=== PATIENT | male | born 1990 | race Hispanic/Latino ===

== ENCOUNTER 2017-12-08 14:35 | Emergency (ER) | payer SELFPAY ==
--- NOTE | 2017-12-08 16:38 | ER ---
Nurse's Notes [facility] Name: Mauro Gómez Age: 27 yrs Sex: Male : 1990 Arrival Date: 12/08/2017 Time: 14:41 Bed 9 Private MD: None, None Diagnosis: Pterygium of eye Presentation: 12/08 15:14 Presenting complaint: Patient states: White spot to sclera that started this AM. aj Patient denies vision changes. Transition of care: patient was not received from another setting of care. Mechanism of Injury: No Mechanism of Injury. The patient denies any loss of vision. Onset of symptoms was December 08, 2017. Risk Assessment: Do you want to hurt yourself or someone else? Patient reports no desire to harm self or others. Initial Sepsis Screen: Does the patient meet any 2 criteria? No. Patient's initial sepsis screen is negative. Does the patient have a suspected source of infection? No. Patient's initial sepsis screen is negative. Care prior to arrival: None. 15:14 Method Of Arrival: Ambulatory 15:14 Acuity: BONNIE 2 Triage Assessment: 15:15 General: Appears in no apparent distress. comfortable, Behavior is calm, cooperative, aj appropriate for age. Pain: Denies pain. EENT: White spot with area of inflammation to right sclera at edge of iris. Reports pain in medial aspect of conjunctiva of right eye. Neuro: Level of Consciousness is awake, alert, obeys commands, Oriented to person, place, time, situation, Appropriate for age. Respiratory: Airway is patent Respiratory effort is even, unlabored, Respiratory pattern is regular, symmetrical. Derm: Skin is intact, is healthy with good turgor, Skin is pink, warm \T\ dry. normal. Historical: - Allergies: 15:15 No Known Allergies; aj - Home Meds: 15:15 None [Active]; aj - PMHx: 15:15 None; aj - PSHx: 15:15 Hip; aj - Immunization history:: Last tetanus immunization: unknown. - Social history:: Smoking status: Patient uses tobacco products, smokes one-half pack cigarettes per day, Patient uses alcohol, only on a social basis. - Ebola Screening: : Patient negative for fever greater than or equal to 101.5 degrees Fahrenheit, and additional compatible Ebola Virus Disease symptoms Patient denies exposure to infectious person Patient denies travel to an Ebola-affected area in the 21 days before illness onset No symptoms or risks identified at this time. Screenin:40 Abuse screen: Denies threats or abuse. Denies injuries from another. Nutritional iw screening: No deficits noted. Tuberculosis screening: No symptoms or risk factors identified. Fall Risk None identified. Assessment: 16:15 General: Appears in no apparent distress. comfortable, Behavior is calm, cooperative. iw Pain: Complains of pain in right eye. Neuro: Level of Consciousness is awake, alert, obeys commands, Oriented to person, place, time, situation, Moves all extremities. Full function. Cardiovascular: Capillary refill < 3 seconds in bilateral fingers Patient's skin is warm and dry. Respiratory: Respiratory effort is even, unlabored, Respiratory pattern is regular, symmetrical. EENT: Eyes small area of white discoloration noted to medial aspect of right iris. Sclera/Cornea are clear in outer aspect of conjuctiva of right eye, iris of right eye and inner aspect of conjuctiva of right eye. Derm: Skin is intact, is healthy with good turgor. Musculoskeletal: Range of motion: intact in all extremities. Vital Signs: 15:15 BP 114 / 69; Pulse 87; Resp 17; Temp 98.1; Pulse Ox 99% on R/A; Weight 54.43 kg; Height aj 5 ft. 2 in. (157.48 cm); 15:15 Body Mass Index 21.95 (54.43 kg, 157.48 cm) aj ED Course: 14:41 Patient arrived in ED. mr 14:41 None, None is Private Physician. mr 15:15 Triage completed. aj 15:15 Arm band placed on left wrist. Patient placed in an exam room. aj 15:15 Patient has correct armband on for positive identification. iw 16:04 Kasey Bermudez, FAWN is Primary Nurse. iw 16:09 Dashawn Melendrez PA is PHCP. [facility] 16:09 Rad Bennett MD is Attending Physician. [facility] 16:50 No provider procedures requiring assistance completed. Patient did not have IV access iw during this emergency room visit. Administered Medications: No medications were administered Outcome: 16:37 Discharge ordered by . [facility] 16:50 Discharged to home ambulatory, with family. iw 16:50 Condition: good 16:50 Discharge instructions given to patient, Instructed on discharge instructions, follow up and referral plans. Demonstrated understanding of instructions, follow-up care. 16:51 Patient left the ED. iw Signatures: Jayleen Storey RN RN Dashawn Maldonado PA PA jmm Rivera, Mary mr Kasey Bermudez RN RN iw Corrections: (The following items were deleted from the chart) 15:17 15:15 Immunization history: Adult Immunizations up to date, mikel morin
--- NOTE | 2017-12-08 16:38 | EDPHYS ---
Physician Documentation [facility] Name: Mauro Gómez Age: 27 yrs Sex: Male : 1990 Arrival Date: 12/08/2017 Time: 14:41 Bed 9 Private MD: None, None ED Physician Rad Bennett HPI: 12/08 16:18 This 27 yrs old Male presents to ER via Ambulatory with complaints of Eye Pain.jmm 16:18 The patient is experiencing pain. Onset: The symptoms/episode began/occurred today. jmm Duration: the symptoms are continuous. Aggravated by nothing. Alleviated by nothing. Associated signs and symptoms: Pertinent negatives: fever. This is a 27 year old male that presents to the ED with complaints of a mass to his right eye. 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 Patient denies change in his vision. . Historical: - Allergies: 15:15 No Known Allergies; aj - Home Meds: 15:15 None [Active]; aj - PMHx: 15:15 None; aj - PSHx: 15:15 Hip; aj - Immunization history:: Last tetanus immunization: unknown. - Social history:: Smoking status: Patient uses tobacco products, smokes one-half pack cigarettes per day, Patient uses alcohol, only on a social basis. - Ebola Screening: : Patient negative for fever greater than or equal to 101.5 degrees Fahrenheit, and additional compatible Ebola Virus Disease symptoms Patient denies exposure to infectious person Patient denies travel to an Ebola-affected area in the 21 days before illness onset No symptoms or risks identified at this time. ROS: 16:18 Constitutional: Negative for fever, chills, and weight loss. jmm 16:18 Cardiovascular: Negative for chest pain, palpitations, and edema, Respiratory: Negative for shortness of breath, cough, wheezing, and pleuritic chest pain. 16:18 Eyes: Positive for pain. 16:18 All other systems are negative. Exam: 16:18 Constitutional: This is a well developed, well nourished patient who is awake, alert, jmm and in no acute distress. Head/Face: atraumatic. 16:18 ENT: Moist Mucus Membranes Neck: Trachea midline, Supple Chest/axilla: Normal chest wall appearance and motion. Cardiovascular: Regular rate and rhythm. No edema appreciated Respiratory: Normal respirations, no respiratory distress appreciated Abdomen/GI: Non distended, soft Back: Normal ROM 16:18 Skin: General appearance color normal MS/ Extremity: Moves all extremities, no obvious deformities appreciated, no edema noted to the lower extremities Neuro: Awake and alert, normal gait Psych: Behavior is normal, Mood is normal, Patient is cooperative and pleasant 16:18 Eyes: Extraocular movements: intact throughout, Sclera: pterygium noted along the medial edge of the cornea. . 16:18 Eyes: Conjunctiva: normal, Anterior chamber: normal, no hyphema. Vital Signs: 15:15 BP 114 / 69; Pulse 87; Resp 17; Temp 98.1; Pulse Ox 99% on R/A; Weight 54.43 kg; Height aj 5 ft. 2 in. (157.48 cm); 15:15 Body Mass Index 21.95 (54.43 kg, 157.48 cm) aj MDM: 16:18 Patient medically screened. [facility] 16:36 Data reviewed: vital signs, nurses notes. Counseling: I had a detailed discussion with [facility] the patient and/or guardian regarding: the historical points, exam findings, and any diagnostic results supporting the discharge/admit diagnosis, the need for outpatient follow up, to return to the emergency department if symptoms worsen or persist or if there are any questions or concerns that arise at home. 16:36 ED course: Patient given follow up with ophthalmology. Given return precautions for [facility] changes in vision, pain, ECT. patient understood and agrees with the plan of care. . Administered Medications: No medications were administered Disposition: 12/09 13:12 Co-signature as Attending Physician, Rad Bennett MD I agree with the assessment and kdr plan of care. Disposition: 12/08/17 16:37 Discharged to Home. Impression: Pterygium of eye. - Condition is Stable. - Medication Reconciliation Form, Thank You Letter, Antibiotic Education, Prescription Opioid Use form. - Follow up: Private Physician; When: 2 - 3 days; Reason: Recheck today's complaints, Continuance of care, Re-evaluation by your physician. - Notes: Please follow up with ophthalmology for further evaluation of your right eye. Please return to the ED if you develop increased pain, vision change or any other concerning symptoms. Signatures: Jayleen Storey RN RN Rad Morrison MD MD kdr Mickail, Joel, PA PA jmm Williams, Irene, RN RN iw Corrections: (The following items were deleted from the chart) 12/08 15:17 15:15 Immunization history: Adult Immunizations up to date, mikel morni 16:51 16:37 12/08/2017 16:37 Discharged to Home. Impression: Pterygium of eye. Condition is iw Stable. Forms are Medication Reconciliation Form, Thank You Letter, Antibiotic Education, Prescription Opioid Use. Follow up: Private Physician; When: 2 - 3 days; Reason: Recheck today's complaints, Continuance of care, Re-evaluation by your physician. keara
== END 2017-12-08 16:51 | disposition home or self-care (01) ==
LOC: ER 14:35
DX: H11.001 Unspecified pterygium of right eye (principal); F17.210 Nicotine dependence, cigarettes, uncomplicated
CPT/HCPCS: 99281